=== PATIENT | female | born 1975 | race Caucasian/White ===

== ENCOUNTER 2021-04-08 11:45 | Emergency (ER) | payer BC ==
[~2021-04-08] VITALS: Ht 165.1 cm; Wt 68.0 kg
[2021-04-08 12:41] VITALS: BP_SYST 135
[2021-04-08 12:58] VITALS: BP_SYST 135
== END 2021-04-08 12:58 | disposition home or self-care (01) ==
LOC: SED 11:45
DX: R42 Dizziness and giddiness (principal); F31.9 Bipolar disorder, unspecified
CPT/HCPCS: 99283